=== PATIENT | female | born 1985 ===

== ENCOUNTER → 2022-04-26 | Outpatient (CLI) | payer OTHER | LOC: MHCPAIN 07:51 | DX: M47.897 Other spondylosis, lumbosacral region (principal); M53.3 Sacrococcygeal disorders, not elsewhere classified; M54.16 Radiculopathy, lumbar region | CPT/HCPCS: G0463 ==

== ENCOUNTER → 2022-06-05 | Outpatient (CLI) | payer OTHER | LOC: MHCPAIN 12:47 | DX: M47.817 Spondylosis without myelopathy or radiculopathy, lumbosacral region (principal); M53.3 Sacrococcygeal disorders, not elsewhere classified; M54.17 Radiculopathy, lumbosacral region | CPT/HCPCS: G0463; J1100; Q9967 ==

== ENCOUNTER → 2022-09-27 | Outpatient (CLI) | payer OTHER | LOC: MHCPAIN 14:42 | DX: M79.18 Myalgia, other site (principal); M54.16 Radiculopathy, lumbar region; M51.36 Other intervertebral disc degeneration, lumbar region; M54.32 Sciatica, left side | CPT/HCPCS: G0463 ==

== ENCOUNTER → 2022-12-20 | Outpatient (CLI) | payer OTHER | LOC: MHCPAIN 14:18 | DX: M25.562 Pain in left knee (principal); M54.32 Sciatica, left side; M54.17 Radiculopathy, lumbosacral region; M79.18 Myalgia, other site | CPT/HCPCS: G0463 ==